=== PATIENT | female | born 1960 | race Caucasian/White ===

== ENCOUNTER 2022-10-05 03:50 | Emergency (ER) | payer OTHER ==
[2022-10-05] MEDS ORDERED: Sodium Chloride 0.9% 1,000 ML IV STA (04:33)
[2022-10-05] MEDS ORDERED: Ketorolac 30 MG/ML SDV IVPUSH ONE (04:36)
== END 2022-10-05 10:15 ==
LOC: SUPCPDRO 03:50 → CC.ED 03:50
DX: T58.91XA Toxic effect of carbon monoxide from unspecified source, accidental (unintentional), initial encounter (principal); Z88.2 Allergy status to sulfonamides
CPT/HCPCS: 36415; 71046; 80053; 82550; 83605; 83735; 84484; 85025; 93005; 96361; 96374; 99285-25; J1885; J7030